=== PATIENT | female | born 1970 | race Caucasian/White ===

== ENCOUNTER 2016-08-28 17:46 | Emergency (ER) | payer OTHER ==
[~2016-08-28] VITALS: Ht 165.1 cm; Wt 104.3 kg
[~2016-08-28 17:46] MED LIST: ALPRAZOLAM1 M2 PO; APAP/CODEINE 301 TAB PO; DOXYCYCLINE MO100 M2 PO; ENDOCET 325 MG-1 TA1 PO; ESCITALOPRAM OX20 MG PO; FLEXERIL PO; FLEXERIL10 MG PO; FORTAMET500 MG PO; HYDROCHLOROTHIA50 M1 PO; K-DUR 20MEQ TA20 MEQ PO; MELOXICAM PO; MOTRIN 600 MG600 MG PO; NAPROXEN500 MG PO; PERCOCET 325 MG1 TA2 PO; PERCOCET 5-3251 EACH PO; POLYTRIM O200 GTT/BO OPH; PREVACID15 M1 PO; PROAIR HFA0.09 MG/Ac INH; SIMV10; TRAMADOL PO; TRAMADOL50 MG PO; VALIUM5 M2 PO
--- NOTE | 2016-08-28 18:11 | ED INFLUENZA/URI COMPLAINT ---
History of Present Illness General Chief Complaint: General Adult Stated Complaint: "IM HERE FOR PNEUMONIA" Source: patient Exam Limitations: no limitations Vital Signs & Intake/Output Vital Signs & Intake/Output Vital Signs Date Time Temp Pulse Resp B/P Pulse O2 O2 Flow FiO2 Ox Delivery Rate 08/28 1925 97.4 98 18 130/80 97 Room Air 08/28 1838 Room Air Room Air 08/28 1754 97.0 106 20 126/81 97 Room Air Allergies Coded Allergies: Penicillins (Severe, CHILDHOOD ALLERGY 09/09/15) Reconcile Medications Albuterol Sulfate (Proair Hfa) 90 MCG HFA.AER.AD 2 PUF INH Q6H PRN RESPIRATORY (Reported) Albuterol Sulfate (Proair Hfa) 90 MCG HFA.AER.AD 2 PUF INH Q4-6 PRN PRN wheezing/shortness of breath Alprazolam 1 MG TABLET 1 TAB PO BIDP PRN ANXIETY (Reported) Doxycycline Monohydrate 100 MG CAPSULE 1 CAP PO DAILY ACNE (Reported) Escitalopram Oxalate 20 MG TABLET 1 TAB PO DAILY DEPRESSION (Reported) Hydrochlorothiazide 50 MG TABLET 1 TAB PO DAILY BP (Reported) Ibuprofen 600 MG TABLET 1 TAB PO PRN PAIN/INFLAMMATION (Reported) with food Lansoprazole (Prevacid) 15 MG CAPSULE.DR 1 CAP PO DAILY GI (Reported) Metformin HCl (Fortamet) 500 MG TAB.ER.24 1 TAB PO QAM PRE-DM (Reported) Prednisone 10 MG TABLET 3 TAB PO DAILY WHEEZING Robitussin AC (Guaifenesin-Codeine Syrup) 200 MG-20 MG/10 ML LIQUID 10 ML PO Q6H PRN COUGH Simvastatin (Simvastatin*) (Unknown Strength) TABLET (Unknown Dose) PO QPM CHOLESTEROL (Reported) Triage Note: PT TO ED C/O URI S/S SINCE LAST WEEK. C/O CHILLS, UNSURE IF FEVERS AT HOME. C/O NON-PRODUCTIVE COUGH. "I THINK I HAVE PNEUMONIA". HAS BEEN TAKING "LEFT OVER" COUGH MEDICINE WITH RELIEF, BUT PT RAN OUT. AFEBRILE. Triage Nurses Notes Reviewed? yes : No Patient currently breastfeeds: No HPI: Patient is a 46-year-old female presents complaining of cough, fatigue, weakness , wheezing. Symptoms onset 6 days ago. Patient has been using her albuterol inhaler with mild improvement. Patient also had leftover hydrocodone cough medication which she used for the first 2 days with mild improvement. Symptoms have been moderate to severe. Patient finds that symptoms are worse in the evening. Positive sick contacts recently. Associated voice hoarseness and ear pressure. Patient denies sore throat, nasal congestion, sinus pain. (ARAMIS SCHILLING) Past History Travel History Traveled to [place] past 21 day No Medical History Any Pertinent Medical History? 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 No (ARAMIS SCHILLING) Review of Systems Review of Systems Constitutional: Reports: chills, malaise, weakness. EENTM: Reports: see HPI. Respiratory: Reports: cough, short of breath, wheezing. Cardiovascular: Denies: chest pain. GI: Denies: abdominal pain, vomiting. Genitourinary: Reports: no symptoms. Musculoskeletal: Reports: no symptoms. Skin: Reports: no symptoms. Neurological/Psychological: Denies: headache. Hematologic/Endocrine: Reports: no symptoms. Immunologic/Allergic: Reports: no symptoms. (ARAMIS SCHILLING) Physical Exam Physical Exam General Appearance: well developed/nourished, alert, awake Head: atraumatic, normal appearance Eyes: Bilateral: normal appearance. Ears, Nose, Throat: voice hoarseness. pharynx normal. no sinus tenderness. TM 's normal bilaterally Neck: normal inspection, supple, full range of motion Respiratory: normal breath sounds, chest non-tender, no respiratory distress, lungs clear Cardiovascular: regular rate/rhythm (no appreciable murmur) Back: normal inspection, normal range of motion Extremities: normal inspection, normal capillary refill, normal range of motion Neurologic/Psych: no motor/sensory deficits, awake, alert, oriented x 3, normal gait, normal mood/affect Skin: intact, normal color, warm/dry Lymphatic: no anterior cervical noemi Core Measures Severe Sepsis Present: No Septic Shock Present: No (ARAMIS SCHILLING) Progress Differential Diagnosis: influenza, otitis, pneumonia, pharyngitis, sinusitis Plan of Care: Orders Procedure Date/time Status XRY-CHEST XRAY, PA AND LATERAL 08/28 1817 Active Results of chest x-ray discussed with patient. No acute respiratory distress. Patient appears stable for discharge. (ARAMIS SCHILLING) Diagnostic Imaging: Viewed by Me: Radiology Read. Discussed w/RAD: Radiology Read. Radiology Impression: PATIENT: ADENIKE SHAW PRESENT AGE: 46 PATIENT ACCOUNT NO: [id number] : 71 LOCATION: [facility] ORDERING PHYSICIAN: ARAMIS LARES SERVICE DATE: 08/28/16-1817 EXAM TYPE: RAD - XRY-CHEST XRAY, PA AND LATERAL EXAMINATION: XR CHEST CLINICAL INFORMATION: Cough and dyspnea. COMPARISON: Chest x-ray 09/09/2015. TECHNIQUE: 2 views of the chest were obtained. FINDINGS: Lungs are clear. No pulmonary vascular congestion. No infiltrate or pleural effusion. The heart size is normal. The cardiac and mediastinal contours are normal. . There are multilevel degenerative changes of dorsal spine. IMPRESSION: No acute abnormality of the chest. DICTATED BY: JOHNNY KIRK MD DATE/TIME DICTATED:08/28/161904 PINKING SEWING MACHINE OPERATOR:KENDRICK DATE/ TIME TRANSCRIBED:08/28/161904 CONFIDENTIAL, DO NOT COPY WITHOUT APPROPRIATE AUTHORIZATION. <Electronically signed in Other Vendor System> SIGNED BY: JOHNNY KIRK MD 08/28/161909 Initial ED EKG: none (ARAMIS SCHILLING) Departure Departure Time of Disposition: 1916 Disposition: HOME OR SELF CARE Condition: Stable Clinical Impression Primary Impression: Bronchitis Referrals: PRIYA FERMIN (PCP/Family) Additional Instructions: Drink plenty of fluids and rest. Follow up with your primary care provider if no improvement within 2 days. Return to the ER if breathing worsening, unable to stay hydrated or worsening of symptoms. Departure Forms: Customer Survey General Discharge Information Prescriptions: Current Visit Scripts Robitussin AC (Guaifenesin-Codeine Syrup) 10 ML PO Q6H PRN COUGH #150 ML Albuterol Sulfate (Proair Hfa) 2 PUF INH Q4-6 PRN PRN wheezing/shortness of breath #1 INHAL Prednisone 3 TAB PO DAILY #9 TAB (CLEMENCIA LARES,ARAMIS) PA/PSYCH ASSISTANT Co-Sign Statement Statement: ED Attending supervision documentation- [] I saw and evaluated the patient. I have also reviewed all the pertinent lab results and diagnostic results. I agree with the findings and the plan of care as documented in the PA's/PSYCH ASSISTANT's documentation. [X] I have reviewed the ED Record and agree with the PA's/PSYCH ASSISTANT's documentation. [] Additions or exceptions (if any) to the PAs/PSYCH ASSISTANT's note and plan are summarized below: [] (YAMIL FERREIRA DO)
[2016-08-28] MEDS ORDERED: PROAIR HFA8.5 GM INH ×2 (18:36→19:21)
[2016-08-28] MEDS ORDERED: IBUPROFEN600 M1 PO (18:38)
[2016-08-28] MEDS ORDERED: SIMVASTATIN40 M1 PO (18:40)
--- NOTE | 2016-08-28 19:10 | RADIOLOGY REPORT ---
EXAMINATION: XR CHEST CLINICAL INFORMATION: Cough and dyspnea. COMPARISON: Chest x-ray 09/09/2015. TECHNIQUE: 2 views of the chest were obtained. FINDINGS: Lungs are clear. No pulmonary vascular congestion. No infiltrate or pleural effusion. The heart size is normal. The cardiac and mediastinal contours are normal. . There are multilevel degenerative changes of dorsal spine. IMPRESSION: No acute abnormality of the chest.
[2016-08-28] MEDS ORDERED: PREDNISONE10 M2 PO (19:21)
[2016-08-28] MEDS ORDERED: GUAIFENESIN-COD10 ML PO (19:21)
[2016-08-28 19:26] VITALS: BP 130/80
== END 2016-08-28 19:27 ==
LOC: ERH 17:46
DX: J40 Bronchitis, not specified as acute or chronic (principal); R53.1 Weakness; I10 Essential (primary) hypertension

== ENCOUNTER 2017-06-26 16:17 | Emergency (ER) | payer OTHER ==
[~2017-06-26] VITALS: Ht 165.1 cm; Wt 104.3 kg
[~2017-06-26 16:17] MED LIST changes: +BACLOFEN10 M1 PO; +GUAIFENESIN-COD10 ML PO; +IBUPROFEN600 M1 PO; +PREDNISONE10 M2 PO; +PROAIR HFA8.5 GM INH; +SIMVASTATIN40 M1 PO; +TYLENOL WITH C1 EACH PO; +ULTRAM50 M1 PO
[2017-06-26 16:25] VITALS: BP 127/93
== END 2017-06-26 17:03 | disposition admitted as inpatient to this hospital (09) ==
LOC: ERH 16:17
DX: R06.00 Dyspnea, unspecified (principal)

== ENCOUNTER 2017-11-01 08:21 | Emergency (ER) | payer OTHER ==
[~2017-11-01] VITALS: Ht 165.1 cm; Wt 104.3 kg
[~2017-11-01 08:21] MED LIST changes: +SIMVASTATIN20 M2 PO; -SIMVASTATIN40 M1 PO
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
[2017-11-01 10:35] VITALS: BP 113/80
[2017-11-01] MEDS ORDERED: NEXIUM20 M1 PO (11:20)
[2017-11-01] MEDS ORDERED: ZANTAC300 MG PO (11:20)
[2017-11-01] MEDS ORDERED: SINGULAIR10 M1 PO (11:21)
[2017-11-01] MEDS ORDERED: ARNUITY ELLIP100 MCG PO (11:21)
[2017-11-01] MEDS ORDERED: VYVANSE70 M1 PO (11:23)
[2017-11-01] MEDS ORDERED: LISINOPRIL5 M1 PO (11:23)
== END 2017-11-01 11:39 ==
LOC: ERH 08:21
DX: F41.9 Anxiety disorder, unspecified (principal)

== ENCOUNTER 2017-12-17 21:05 | Emergency (ER) | payer OTHER ==
[~2017-12-17 21:05] MED LIST changes: +ARNUITY ELLIP100 MCG PO; +LISINOPRIL5 M1 PO; +NEXIUM20 M1 PO; +SINGULAIR10 M1 PO; +VYVANSE70 M1 PO; +ZANTAC300 MG PO
[2017-12-17] MEDS ORDERED: PRILOSEC OTC20 M1 PO (21:38)
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
[2017-12-17 22:43] VITALS: BP 126/66
[2017-12-17] MEDS ORDERED: NAPROSYN500 M1 PO (23:01)
[2017-12-17] MEDS ORDERED: CYCLOBENZAPRINE10 M1 PO (23:01)
[2017-12-17] MEDS ORDERED: LIDODERM1 EACH TOP (23:01)
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
== END 2017-12-17 23:30 ==
LOC: ERH 21:05
DX: S83.92XA Sprain of unspecified site of left knee, initial encounter (principal); S90.32XA Contusion of left foot, initial encounter; W16.032A Fall into swimming pool striking wall causing other injury, initial encounter; Y92.9 Unspecified place or not applicable; Y93.11 Activity, swimming
CPT/HCPCS: 73562-LT; 73660-LT